=== PATIENT | male | born 1995 | race Caucasian/White ===

== ENCOUNTER → 2017-05-23 | Outpatient (CLI) | payer OTHER ==
--- NOTE | 2017-05-23 13:41 | DIAGNOSTIC IMAGING REPORT ---
ABDOMEN ULTRASOUND FOR HERNIA CLINICAL HISTORY: JAIME GROIN PAIN FOR HERNIA COMPARISON STUDY: None. FINDINGS: Real-time sonographic imaging of the right and left inguinal regions were performed. No hernia is identified. No fluid collections, lymphadenopathy, or masses identified. IMPRESSION: No evidence for a right or left inguinal hernia. Electronically signed by: Matthew Moya M.D. 05/23/2017 1:40 PM Dictated Date/Time: 05/23/2017 1:39 PM
== END | disposition home or self-care (01) ==
LOC: C.ULTR 12:58 → MERGE 12:58
PROVIDERS: ATTEND Emergency Medicine
DX: R10.31 Right lower quadrant pain (principal); R10.32 Left lower quadrant pain